=== PATIENT | male | born 1940 | race Caucasian/White ===

== ENCOUNTER 2019-10-20 09:00 | Observation (INO) ==
[2019-10-20] MEDS ORDERED: SODIUM CHLORIDE 0.9% 1,000 ML IV STA (09:17)
[2019-10-20 09:35] LABS: Basophils % 0.2 % (0.0-0.8); Eosinophils # 0.1 10*3/uL (0.0-0.87); Eosinophils % 0.7 % (0.00-10.9); Hematocrit 37.9 VOL% (42.0-52.0); Hemoglobin 12.4 GM/DL (14.0-18.0); Immature Granulocytes % 0.7 %; Immature Granulocytes Absolute 0.06 #; Lymphocytes # 1.1 10*3/uL (1.4-4.0); Lymphocytes % 13.3 % (21.2-54.2); Mean Corpuscular HGB Conc 32.7 GM/DL (32-36); Mean Corpuscular Volume 95.9 FL (87-102); Mean Platelet Volume 10.9 FL (9.6-12.0); Monocytes % 7.1 % (1.7-12.7); Platelet Count 163 T/CUMM (130-400); Red Blood Count 3.95 MC/CUMM (3.8-5.5); Red Cell Distribution Width 14.5 % (9.3-17.3)
[2019-10-20 09:45] LABS: INR 1.6; PT Patient Result 17.2 SECS (9.8-11.9)
[2019-10-20 09:59] LABS: Albumin 3.1 G/DL (3.4-5.0); Bilirubin,Total 0.6 MG/DL (0.2-1.0); Calcium 8.5 MG/DL (8.5-10.1); Osmolality,Calculated 279.5 MOS/KG (273-304)
[2019-10-20] MEDS ORDERED: ASPIRIN CHEW 81 MG TABLET PO STA (10:14)
[2019-10-20 10:16] LABS: Partial Thromboplastin Time 41.9 SECS (23.9-33.8)
[2019-10-20] MEDS ORDERED: ASPIRIN 325 MG TABLET PO STA (10:25)
[2019-10-20] MEDS ORDERED: GLUCAGON 1 MG VIAL IM PRN (11:35)
[2019-10-20] MEDS ORDERED: ONDANSETRON 4 MG/2 ML VIAL IV PRN (11:35)
[2019-10-20] MEDS ORDERED: DOCUSATE SODIUM 100 MG CAPSULE PO PRN (11:35)
[2019-10-20] MEDS ORDERED: DEXTROSE 50% 25 GM/50 ML VIAL IV PRN (11:35)
[2019-10-20] MEDS ORDERED: POLYVINYL ALCOHOL 1.4% OPH SOLN 15 ML BOTTLE BOTH EYES PRN (11:42)
[2019-10-20] MEDS ORDERED: NITROGLYCERIN SL 0.4 MG TABLET SL PRN (11:54)
[2019-10-20 11:56] LABS: Amorphous Crystals,Urine Occasional /HPF (Few); Apearance,Urine CLEAR (Clear); Bacteria,Urine Occasional /HPF (Few); Bilirubin,Urine Negative (Negative); Blood, Urine Negative (Negative); Glucose,Urine (UA) Negative (Negative); Hyaline Casts,Urine 7 /LPF (0-3); Ketones,Urine Negative (Negative); Mucus,Urine Occasional /LPF (Occasional); Nitrite,Urine Negative (Negative); Protein,Urine Negative; RBC,Urine 1 /HPF (0-4); Squamous Epithelial Cell,Urine Occasional /HPF (0-10); Urine Color Yellow (Yellow); Urine Urobilinogen < 2.0 EU/DL (0.2-1.0); WBC,Urine 1 /HPF (0-6)
[2019-10-20] MEDS: RIVAROXABAN 20 MG TABLET PO SCH (16:41)
[2019-10-20] MEDS: OXYBUTYNIN 5 MG TABLET PO SCH (20:19)
[2019-10-20] MEDS: ROSUVASTATIN 20 MG TABLET PO SCH (20:19)
[2019-10-20] MEDS: PANTOPRAZOLE 40 MG TABLET PO SCH (20:19)
[2019-10-20] MEDS: TAMSULOSIN 0.4 MG CAPSULE PO SCH (20:21)
[2019-10-21] MEDS: RIVAROXABAN 20 MG TABLET PO SCH (08:58)
[2019-10-21] MEDS: CALCIUM (CARBONATE)/VITAMIN D 600 MG-400 UNIT TABLET PO SCH (08:58)
[2019-10-21] MEDS: POTASSIUM CHLORIDE 20 MEQ TABLET PO SCH (08:59)
[2019-10-21] MEDS: FINASTERIDE 5 MG TABLET PO SCH (08:59)
[2019-10-21] MEDS: FUROSEMIDE 40 MG TABLET PO SCH (08:59)
[2019-10-21] MEDS: CETIRIZINE 10 MG TABLET PO SCH (08:59)
[2019-10-21] MEDS: RANOLAZINE 500 MG TABLET PO SCH ×2 (08:59→21:55)
[2019-10-21] MEDS: PANTOPRAZOLE 40 MG TABLET PO SCH ×2 (08:59→21:55)
[2019-10-21] MEDS: ASPIRIN EC 81 MG TABLET PO SCH (08:59)
[2019-10-21] MEDS: TAMSULOSIN 0.4 MG CAPSULE PO SCH (21:55)
[2019-10-21] MEDS: ROSUVASTATIN 20 MG TABLET PO SCH (21:55)
[2019-10-21] MEDS: OXYBUTYNIN 5 MG TABLET PO SCH (21:56)
[2019-10-22 05:31] LABS: Basophils % 0.3 % (0.0-0.8); Eosinophils # 0.3 10*3/uL (0.0-0.87); Eosinophils % 4.7 % (0.00-10.9); Hematocrit 42.3 VOL% (42.0-52.0); Immature Granulocytes % 0.2 %; Immature Granulocytes Absolute 0.01 #; Lymphocytes # 1.4 10*3/uL (1.4-4.0); Lymphocytes % 23.6 % (21.2-54.2); Mean Corpuscular HGB Conc 33.1 GM/DL (32-36); Mean Corpuscular Volume 94.4 FL (87-102); Monocytes % 10.3 % (1.7-12.7); Neutrophils % 60.9 % (38.7-73.9); Platelet Count 164 T/CUMM (130-400); Red Blood Count 4.48 MC/CUMM (3.8-5.5); Red Cell Distribution Width 14.5 % (9.3-17.3)
[2019-10-22 06:25] LABS: Calcium 8.5 MG/DL (8.5-10.1); Osmolality,Calculated 277.4 MOS/KG (273-304)
[2019-10-22] MEDS: PANTOPRAZOLE 40 MG TABLET PO SCH (08:27)
[2019-10-22] MEDS: ASPIRIN EC 81 MG TABLET PO SCH (08:27)
[2019-10-22] MEDS: POTASSIUM CHLORIDE 20 MEQ TABLET PO SCH (08:27)
[2019-10-22] MEDS: CETIRIZINE 10 MG TABLET PO SCH (08:27)
[2019-10-22] MEDS: CALCIUM (CARBONATE)/VITAMIN D 600 MG-400 UNIT TABLET PO SCH (08:27)
[2019-10-22] MEDS: FUROSEMIDE 40 MG TABLET PO SCH (08:27)
[2019-10-22] MEDS: FINASTERIDE 5 MG TABLET PO SCH (08:27)
[2019-10-22] MEDS: RIVAROXABAN 20 MG TABLET PO SCH (08:27)
[2019-10-22] MEDS: RANOLAZINE 500 MG TABLET PO SCH (08:27)
[2019-10-22 09:17] VITALS: BP 134/67
== END 2019-10-22 11:57 | disposition home or self-care (01) ==
LOC: EDBD → EDUNIT# → N.EDINP 09:00 → N.ED 09:00 → SUATTDRO 11:35 → N.EDINP 13:40 → N.TELEN 13:48
PROVIDERS: ADMIT Internal Medicine; ATTEND Phlebology